=== PATIENT | male | born 1960 | race African-American/Black ===

== ENCOUNTER → 2018-05-07 | Outpatient (CLI) | payer OTHER ==
--- NOTE | 2018-05-07 12:10 | RADIOLOGY REPORT (SQ) ---
EXAM DESCRIPTION: CHEST 2 VIEWS COMPLETED DATE/TIME: 05/07/2018 11:43 am REASON FOR STUDY: R07.89 CHEST TIGHTNESS COMPARISON: None. TECHNIQUE: Frontal and lateral radiographic views of the chest acquired. NUMBER OF VIEWS: Two view. LIMITATIONS: None. FINDINGS: LUNGS AND PLEURA: No opacities, masses or pneumothorax. No pleural effusion. MEDIASTINUM AND HILAR STRUCTURES: No masses or contour abnormalities. HEART AND VASCULAR STRUCTURES: Heart normal size. No evidence for failure. BONES: No acute findings. HARDWARE: None in the chest. OTHER: No other significant finding. IMPRESSION: NO SIGNIFICANT RADIOGRAPHIC FINDING IN THE CHEST. TECHNICAL DOCUMENTATION: JOB ID: [id number] [employer]- All Rights Reserved Reading location - IP/workstation name: [email or web address]
== END ==
LOC: RAD 11:30
PROVIDERS: ATTEND Nurse Practitioner Family
DX: R07.89 Other chest pain (principal)
CPT/HCPCS: 71046

== ENCOUNTER → 2019-02-06 | Outpatient (CLI) | payer OTHER ==
[2019-02-06 10:16] LABS: ALBUMIN 4.3 g/dL (3.5-5.0); ALKALINE PHOSPHATASE 46 U/L (38-126); ASPARTATE AMINO TRANSFERASE 42 U/L (17-59); BLOOD UREA NITROGEN 14 mg/dL (7-20); CARBON DIOXIDE 31 mmol/L (22-30); CHOLESTEROL 139.18 mg/dL (0-200); GLUCOSE 92 mg/dL (75-110); TOTAL PROTEIN 7.4 g/dL (6.3-8.2)
[2019-02-06 10:18] LABS: ANION GAP 8 (5-19); CALCIUM 9.6 mg/dL (8.4-10.2); CHLORIDE 102 mmol/L (98-107); POTASSIUM 4.2 mmol/L (3.6-5.0); TRIGLYCERIDES 34 mg/dL (<150)
[2019-02-06 10:22] LABS: BILIRUBIN,TOTAL 1.1 mg/dL (0.2-1.3)
[2019-02-06 10:28] LABS: DIRECT LDL 84 mg/dL (<100)
== END ==
LOC: LAB 09:18
PROVIDERS: ATTEND Internal Medicine Cardiovascular Disease
DX: R55 Syncope and collapse (principal); R94.30 Abnormal result of cardiovascular function study, unspecified; R00.2 Palpitations
CPT/HCPCS: 36415; 80048; 80061; 80076; 83036; 83525

== ENCOUNTER → 2019-02-15 | Outpatient (CLI) | payer OTHER | LOC: LAB 14:47 | PROVIDERS: ATTEND Physician Assistant | DX: R00.2 Palpitations (principal) | CPT/HCPCS: 36415; 83735; 84443 ==

== ENCOUNTER → 2019-12-31 | Outpatient (CLI) | payer OTHER ==
[2019-12-31 08:43] LABS: FASTING GAC 95 mg/dL (<110)
[2019-12-31 09:01] LABS: GLUCOSE,FASTING 91 mg/dL (<110)
== END ==
LOC: OD 07:07
PROVIDERS: ATTEND Physician Assistant
DX: R55 Syncope and collapse (principal); R00.2 Palpitations
CPT/HCPCS: 36415; 82951